=== PATIENT | female | born 1955 | race Caucasian/White ===

== ENCOUNTER 2017-02-06 20:37 | Inpatient (IN) | payer SELFPAY ==
--- NOTE | ~2017-02-06 | CN ---
Consultation Report [facility] [address] [place]. [address] NAME: HANNA CASAS : 55 STATUS : ADM IN PAT#: [id number] AGE: 61 ADM/REG DATE : 02/07/17 MR#: [id number] REPORT SERV DATE: 02/07/17 DICTATED BY: BEVERLY FATIMA DATE: 02/07/17 REPORT STATUS : Draft TRANSCRIBED BY: MODL DATE: 02/07/17 GI CONSULTATION DATE OF CONSULTATION: 02/07/2017 REASON FOR CONSULTATION: Evaluation and management of abdominal pain, nausea, vomiting, pancreatitis. HISTORY OF PRESENT ILLNESS: Ms. Casas is a 61-year-old female patient, who was admitted with a chief complaint of abdominal pain, nausea, vomiting, chest pain. She states that, she has been having symptoms since 11/20/2016 with nausea, vomiting, epigastric abdominal pain, loss of appetite. She states that, she has lost 60 pounds since first becoming sick in November. She states that, initially she was seen at [facility] Emergency Room. She had an ultrasound of her abdomen, which she reports as negative other than fatty liver disease. She had a nuclear stress test ordered by Dr. Benítez as an outpatient, which was essentially negative. She has had a recent upper GI series at [facility]. Through the direction of Dr. Benítez, showing what she states is esophagitis, gastritis, and duodenitis. She has been trialed on omeprazole as well as Carafate. She states that, typically after intake of any liquids or medications, she has immediate nausea with vomiting. She states that, she has been also having diarrhea, nonbloody. She complains of epigastric left upper quadrant abdominal pain with radiation into her back as well as chest discomfort. She had an elevated troponin on admission prompting elevated troponin/acute anterior xwu-VX-cibntrdt OK, being seen by Cardiology with tentative plans for cardiac cath, plus or minus PCI. Her CT scan on admission without contrast showed mild infiltration of the peripancreatic fat planes, distal pancreatic tail and body of uncertain clinical significance, the questionable mild acute pancreatitis as well as hepatic steatosis. Her lipase on admission was 534, total bilirubin is 0.9. Her ALT was 23. Her AST was 31. Her alkaline phosphatase was 260, a lactate of 1.4. Presently, she states that she is having left upper quadrant abdominal pain with some radiation into her back. She has been n.p.o. and states her symptoms are not quite as bad. She did also noted to have elevated white blood cell count on admission of 17,500 as well as hypokalemia with a potassium of 2.6. I have discussed with her, she will need at least an upper endoscopy, plus or minus endoscopic ultrasound, after cardiac workup and clearance has been done. I did discuss the risks, benefits, alternatives, and complications with her to include, but not limited to risk of bleeding, perforation, infection, reaction to medications as well as cardiac and pulmonary side effects. She gives consent to proceed if needed. She does voice concern as she states she has had a cousin, who has passed from pancreatic cancer. She states that also in the past, she has had an EGD as well as a colonoscopy in [address] Cohen in [place], I believe she said with her having duodenitis as well as colon polyps on that exam. PAST MEDICAL HISTORY: Positive for anxiety, depression, morbid obesity, obstructive sleep apnea, noncompliant with CPAP therapy, recent weight loss of 60 pounds since November. Consultation Report [address] [place]. [address] NAME: HANNA CASAS : 55 STATUS : ADM IN [facility]#: [id number] AGE: 61 ADM/REG DATE : 02/07/17 MR#: [id number] REPORT SERV DATE: 02/07/17 DICTATED BY: BEVELRY FATIMA DATE: 02/07/17 REPORT STATUS : Draft TRANSCRIBED BY: PIPE DATE: 02/07/17 PAST SURGICAL HISTORY: Cholecystectomy, hysterectomy, . FAMILY HISTORY: Cousin from pancreatic cancer, otherwise noncontributory from a GI standpoint. SOCIAL HISTORY: Positive tobacco. No alcohol. No illicits. Unemployed. ALLERGIES: LISTED TO CECLOR. HOME MEDICATIONS: Xanax, aspirin, Prozac, and [place]. REVIEW OF SYSTEMS: A 10-point review of systems has been obtained with pertinent positives being addressed in the history of present illness. PERTINENT LABORATORY DATA: Sodium 133, potassium 2.8, BUN is 11, creatinine is 1.73. White count 17.5, hemoglobin 15.2, hematocrit 42.7, platelet count 341. INR is 1.2. Triglycerides of 130. PHYSICAL EXAMINATION: VITAL SIGNS: Temperature is 96.8, pulse 88, respiration rate 16, blood pressure of 157/83. NEUROLOGIC: Reveals an alert, obese female, resting in bed. No obvious focal deficits. GENERAL: Cooperative, no apparent distress. Awake, alert, oriented x3. HEAD, EARS, EYES, NOSE, AND THROAT: Anicteric. Pupils equal, round, reactive to light accommodation. Normocephalic, atraumatic. NECK: No JVD. No palpable nodes. CARDIOVASCULAR SYSTEM: Regular rate and rhythm. ABDOMEN: Soft. Tender to palpation. Left quadrant without rebound or guarding. No organomegaly elicited on exam. Active bowel sounds in all four quadrants. Noted obese abdomen. EXTREMITIES: No edema. Normal distal pulses. SKIN: Warm, dry, and intact. ASSESSMENT AND PLAN: 1. Acute anterior evt-CO-iwiddftnq myocardial infarction. Plan for cardiac cath. 2. Pancreatitis with mildly elevated lipase. 3. Nausea, vomiting with abdominal pain. 4. Chest pain. 5. Hypokalemia. 6. Leukocytosis. 7. Acute kidney injury. 8. Obesity. 9. Recent upper GI series with esophagitis, gastritis, and duodenitis. PLAN: Consultation Report [address] [address] NAME: HANNA CASAS : 55 STATUS : ADM IN [facility]#: [id number] AGE: 61 ADM/REG DATE : 02/07/17 MR#: [id number] REPORT SERV DATE: 02/07/17 DICTATED BY: BEVERLY FATIMA DATE: 02/07/17 REPORT STATUS : Draft TRANSCRIBED BY: MODDeya DATE: 02/07/17 1. The patient is planned for cardiac cath, plus or minus PCI with Dr. Che at some point. 2. The patient will need EGD plus or minus EUS, after cardiac clearance is obtained. 3. IV fluid resuscitation as well as PPI. 4. Stool studies for diarrhea. 5. Add Pepcid. 6. Schedule Zofran. We will follow. KAM/PIPE [place]burn RICARDO Herrera / [id number] CC: Ricky Clancy M.D.
--- NOTE | ~2017-02-06 | HP ---
History And Physical [place] [address] [facility] [place]. [address] NAME: HANNA CASAS : 55 STATUS : ADM IN PAT#: [id number] AGE: 61 ADM/REG DATE : 02/07/17 MR#: [id number] REPORT SERV DATE: 02/07/17 DICTATED BY: MAHESH GAITAN DATE: 02/07/17 REPORT STATUS : Draft TRANSCRIBED BY: MODL DATE: 02/07/17 DATE OF ADMISSION: 02/07/2017 POINT OF ENTRY: [facility] Emergency Department. CHIEF COMPLAINT: Abdominal pain, nausea, vomiting, weight loss, and chest pain. HISTORY OF PRESENT ILLNESS: Ms. Casas is a 61-year-old female with a history of anxiety, depression, morbid obesity, as well as obstructive sleep apnea, noncompliant with CPAP therapy, who presents to the emergency room today with multiple complaints including abdominal pain, chest pain, nausea, vomiting, and weight loss. The patient states that for the past three months she has had issues with intractable nausea and vomiting with inability to tolerate any significant oral intake including solids, liquids, as well as medications. She states she has lost about 60 pounds since . She has seen Dr. Benítez multiple times for these complaints. At first, trialed on some oral PPI, which did not improve her symptoms as well as trial on some Carafate, which also did not improve her symptoms. The patient recently had an upper GI series, which reportedly showed duodenitis and gastritis. I am unable to see the details of this radiographic study performed through Dr. Benítez's office. The patient also reports that she has epigastric abdominal pain with radiation to the back between her shoulder blades as well as some left-sided chest pain, likely on either breasts. She reportedly was seen at [facility] for similar complaints earlier in November and then was referred for a nuclear stress test through our system which was low risk stress test in November of this year. The patient was seen by Dr. Benítze's office today and was referred to the emergency department for admission given worsening renal function as well as hypokalemia with a white count of 17,500. The patient denies any fevers or night sweats, but does report some chills. Denies any shortness of breath, cough, or sputum production, but again mentions the left-sided chest pain or either breasts as well as the epigastric abdominal pain with associated nausea, vomiting, with radiation to the back with inability to tolerate any significant oral intake with associated weight loss. The patient also reports some recent lower extremity tenderness and edema which has since resolved with elevation of her legs. Initial evaluation in the emergency department notable for labs and for dehydration with a creatinine of 1.75 as well as potassium 2.8. Her troponin level was initially elevated at 0.26, on repeat it is climbing at 0.44. EKGs appeared to be nonischemic. White count is 17,500, lactic acid within normal limits. Lipase is mildly elevated at 534. CT scan of the abdomen and pelvis was notable for some mild distal peripancreatic stranding concerning for possible pancreatitis. The patient was given IV fluids, antiemetics, and pain control, and was admitted to Hospitalist Service for further evaluation and management. History And Physical [address] [address] NAME: HANNA CASAS : 55 STATUS : ADM IN [facility]#: [id number] AGE: 61 ADM/REG DATE : 02/07/17 MR#: [id number] REPORT SERV DATE: 02/07/17 DICTATED BY: MAHESH GAITAN DATE: 02/07/17 REPORT STATUS : Draft TRANSCRIBED BY: PIPE DATE: 02/07/17 COMPREHENSIVE REVIEW OF SYSTEMS: Otherwise negative unless listed in history of present illness. PREVIOUS MEDICAL HISTORY: 1. Anxiety. 2. Depression. 3. Morbid obesity. 4. Obstructive sleep apnea, noncompliant with CPAP therapy. SURGICAL HISTORY: 1. Cholecystectomy. 2. Abdominal hysterectomy. 3. . ALLERGIES: CECLOR. HOME MEDICATIONS: 1. Xanax 1 mg t.i.d. p.r.n. 2. Aspirin 81 mg daily p.r.n. 3. Prozac 40 mg at bedtime. 4. [place] 10/325 one tab q.i.d. p.r.n. SOCIAL HISTORY: She does smoke. Down from a pack and half a day to one pack per week during this recent illness. Denies any alcohol, denies any illicits. She is currently applying for disability. FAMILY MEDICAL HISTORY: Mother with aortic aneurysm as well as history of stroke. Father with history of congestive heart failure and coronary artery disease. Siblings with valvular disease and heart murmur. LABS AND IMAGIN. White count 17.5, hemoglobin 15.2, hematocrit 42.7, and platelet count is 341. INR 1.2. 2. Sodium is 133, potassium 2.8, chloride 90, carbon dioxide 30, BUN 11, creatinine 1.75, glucose is 106, calcium is 8.3, magnesium 1.8, protein 7.3, albumin is 2.5, bilirubin is 1.1, ALT is 24, AST 30, alkaline phosphatase is 241. 3. Lipase is 534. 4. Troponin is 0.26, on recheck is now 0.44. 5. Lactic acid is 1.4. 6. Chest x-ray per my review shows no acute cardiopulmonary abnormality. 7. EKG per my review shows normal sinus rhythm with no evidence of any acute ischemia or infarction. 8. CT scan of the abdomen and pelvis shows some mild distal peripancreatic stranding concerning for possible pancreatitis as well as hepatic steatosis and diverticulosis without evidence of diverticulitis. 9. Review of [employer] does reveal a stress test of 11/2016 that was low risk vasodilators stress. History And Physical [address] [address] NAME: HANNA CASAS : 55 STATUS : ADM IN [facility]#: [id number] AGE: 61 ADM/REG DATE : 02/07/17 MR#: [id number] REPORT SERV DATE: 02/07/17 DICTATED BY: MAHESH GAITAN DATE: 02/07/17 REPORT STATUS : Draft TRANSCRIBED BY: PIPE DATE: 02/07/17 PHYSICAL EXAMINATION: VITAL SIGNS: Temperature is 97.8 degrees Fahrenheit, pulse is 103, respirations 18, saturating 97% on room air, blood pressure is 166/104. On recheck, it is now 163/87, pulse of 86. GENERAL: The patient is awake, alert, and in no acute distress. Resting comfortably in bed. She is a morbidly obese appearing female. HEENT: Atraumatic and normocephalic. Moist mucous membranes. Pupils are equal, round, reactive to light and accommodation. Extraocular eye movements are intact. No scleral icterus. NECK: No jugular venous distention. No carotid bruits. CARDIAC: Regular rate and rhythm. No murmurs, rubs, or gallops. Normal S1, S2. LUNGS: Clear to auscultation bilaterally. Does have some decreased breath sounds in the bases. ABDOMEN: Obese, soft, does have some epigastric tenderness on palpation as well as hypoactive bowel sounds throughout. EXTREMITIES: Warm and well perfused with trace lower extremity edema, but they are tender to palpation, left greater than right. SKIN: Warm and dry. PSYCH: Affect appropriate. NEURO: Alert and oriented x3. Cranial nerves 2 through 12 grossly intact. Speech is normal. Gait not assessed. ASSESSMENT: Ms. Casas is a 61-year-old female, who presents to the emergency department today with multiple complaints that have largely existed for the past three months and found to have evidence of acute kidney injury and dehydration as well as hyponatremia, hypokalemia, leukocytosis, as well as elevated troponin value, and concern for possible pancreatitis. PROBLEM LIST: 1. Intractable nausea and vomiting. 2. Pancreatitis. 3. Acute kidney injury and dehydration. 4. Hypokalemia. 5. Leukocytosis. 6. Cjl-MV-mdfukgdty myocardial infarction. 7. Hyponatremia. 8. History of gastritis and duodenitis. PLAN: 1. Intractable nausea and vomiting. This is likely multifactorial in etiology from pancreatic inflammation that was seen on CT scan as well as upper GI series recently was performed that showed gastritis and duodenitis. We will treat supportively with antiemetics, pain control, and IV fluids. We will ask Gastroenterology to see patient in the morning for further evaluation and possible endoscopic evaluation. We will empirically place the patient on IV PPI b.i.d. given history of gastritis. 2. Pancreatitis, unclear if this is acute or chronic issue given the chronicity of the History And Physical [address] [address] NAME: HANNA CASAS : 55 STATUS : ADM IN [facility]#: [id number] AGE: 61 ADM/REG DATE : 02/07/17 MR#: [id number] REPORT SERV DATE: 02/07/17 DICTATED BY: MAHESH GAITAN DATE: 02/07/17 REPORT STATUS : Draft TRANSCRIBED BY: MODL DATE: 02/07/17 patient's symptoms. Regardless, we will treat nothing by mouth. With supportive care, with antiemetics, pain control, and IV fluids. Check a lipid panel as well as ionized calcium for alternative etiologies. CT scan of the abdomen and pelvis was unremarkable. She is status post cholecystectomy denies any alcohol intake. 3. Acute kidney injury and dehydration, likely from poor oral intake as well as GI losses. Provide aggressive IV fluid hydration. 4. Hypokalemia, providing IV repletion of potassium. 5. Leukocytosis, unclear etiology at this time. Chest x-ray is clear. This may be due to stress response from her nausea, vomiting, pancreatitis. Urinalysis is pending. Follow up blood cultures. Also checking a procalcitonin level. 6. Qyw-IG-gbxnpfhzi myocardial infarction. The patient does report some vague sensation of chest pain, which may be related to her gastritis and pancreatitis or may be completely different set of complaints. EKG is nonischemic. It is reassuring she had a recent stress test that was low risk less than two months ago. We will continue to trend out cardiac enzymes. Dr. Che of Cardiology was consulted and will see patient in the morning. Elevated troponin values also may be due to the patient's dehydration. 7. DVT prophylaxis. Heparin subcu. CODE STATUS: The patient wished to be full code. JCB/MODL Mahesh Gaitan MD / [id number] CC: MD Yonatan Joy M.D.
--- NOTE | ~2017-02-06 | CN ---
Consultation Report [facility] [address] [place]. [address] NAME: HANNA CASAS : 55 STATUS : ADM IN [facility]#: [id number] AGE: 61 ADM/REG DATE : 02/07/17 MR#: [id number] REPORT SERV DATE: 02/09/17 DICTATED BY: DATE: REPORT STATUS : Draft TRANSCRIBED BY: MODL DATE: 02/09/17 CONSULTATION DATE OF CONSULTATION: REASON FOR CONSULTATION: Acute kidney injury. HISTORY OF PRESENT ILLNESS: Ms. Casas is a 61-year-old white female, who presented to the hospital with chief complaint of 60-pound weight loss, nausea and vomiting over three months with diarrhea. She presented to the hospital, had a mild troponin elevation and was taken to cath, which showed no significant obstructive disease. She got fluid yesterday with cath and then Bumex afterwards. Creatinine was 1.8 on admission; today, it is 1.8; in December, it was 1.1 and last year on the records, it was normal. She denies any history of kidney disease in the past. She is not diabetic. She denies history of hypertension prior to this admission. Her complaints have been GI only. Denies any dysuria or hematuria. Denies any NSAID usage. PAST MEDICAL HISTORY: Anxiety, depression, duodenal ulcer, fatty liver, obstructive sleep apnea, morbid obesity, gout, osteoarthritis, reflux. She has had a hysterectomy, a gastrectomy, and . ALLERGIES: CECLOR. SOCIAL HISTORY: She is . States she smokes a pack of cigarettes a week. No alcohol use. FAMILY MEDICAL HISTORY: Denies any kidney disease in her family at all. HOME MEDICATIONS: Xanax, Prozac, [place], and aspirin. REVIEW OF SYSTEMS: Twelve-point review of systems obtained and negative with the exception of that in the HPI. PHYSICAL EXAMINATION: VITAL SIGNS: Temperature 97.8, blood pressure 177/85, pulse 78, respiratory rate 18, O2 saturation is 95%. GENERAL: This is a pleasant, cooperative, overweight white female. She is sitting up on the side of bed, in no acute distress. Answers questions appropriately. HEENT: Normocephalic and atraumatic. Conjunctivae clear. Sclerae anicteric. Pupils are equal and round. Oral mucosa is moist. NECK: Thick. LUNGS: Respirations even and unlabored. Breath sounds clear to auscultation. HEART: Rate is regular. No murmur, rub, or gallop. ABDOMEN: Soft and nontender. No CVA tenderness. Consultation Report [place] [address] [place]. [address] NAME: HANNA CASAS : 55 STATUS : ADM IN PAT#: [id number] AGE: 61 ADM/REG DATE : 02/07/17 MR#: [id number] REPORT SERV DATE: 02/09/17 DICTATED BY: DATE: REPORT STATUS : Draft TRANSCRIBED BY: MODL DATE: 02/09/17 BACK: Within normal limits. EXTREMITIES. No significant edema. No cyanosis or clubbing. SKIN: Warm, dry, and intact. No unusual rashes or skin lesions. NEURO: No focal deficits. Mood and affect, pleasant appropriate. PERTINENT LABORATORIES AND X-RAYS: Sodium 142, potassium 3.5, chloride 107, CO2 of 27, BUN of 15, creatinine of 1.8, calcium 7.8, magnesium 1.8, albumin of 2.1. LFTs unremarkable. WBCs 9, H and H 12 and 37, platelets 299,000. IMPRESSION: 1. Acute kidney injury. 2. Nausea and vomiting with 60-pound weight loss. 3. Grx-GR-xxcxyylst myocardial infarction with negative cath yesterday, postop day one. 4. Acute pancreatitis. 5. Hypertension. PLAN/RECOMMENDATIONS: Acute kidney injury with weight loss and GI symptoms ongoing for months. Creatinine 1.8 on admission and today, it is still 1.8 status post cath. She has good urine output. We will give her IV fluids. Recheck urine studies and SPEP. Suspect this is all due to her chronic dehydration, but certainly there is nothing acute here and if she is stable, would be okay for discharge and follow up as an outpatient if GI is agreeable after getting her EGD. We will follow along with you. Thank you for the consultation. HILDA RICARDO Hull / [id number] CC: Ricky Clancy Jackelin, M.D.
--- NOTE | ~2017-02-06 | DS ---
Discharge Summary [place] [id number] [place]. [address] NAME: HANNA CASAS : 55 STATUS : DIS IN PAT#: [id number] AGE: 61 ADM/REG DATE : 02/07/17 MR#: [id number] REPORT SERV DATE: 02/14/17 DICTATED BY: TITUS ORONA DATE: 02/13/17 REPORT STATUS : Draft TRANSCRIBED BY: MODL DATE: 02/13/17 ADMISSION DATE: 02/07/2017 DISCHARGE DATE: 02/13/2017 DISCHARGE DIAGNOSES: 1. Acute pancreatitis, increased CA-19-9. 2. Chest pain status post catheterization performed by Dr. Che on 02/08/2017, normal coronaries. 3. Nausea, vomiting, and diarrhea. 4. Acute on chronic kidney disease. 5. Fatty liver. 6. Obesity. 7. Anxiety disorder. DISCHARGE CONSULTANTS: 1. Reginaldo Che M.D., [facility], Cardiology. 2. Gray Al M.D. 3. Danielito Bhatt M.D. FOLLOW-UP: Followups with Dr. Che, Dr. Al, and Dr. Bhatt post discharge, and Dr. Benítez. We will need followup for BMP for potassium, creatinine, and follow up for results for SPEP, UPEP. PROCEDURES DONE: 1. Cardiac cath with no coronary artery disease identified on 02/08/[address] Che. 2. 2D echo with LVEF 55% to 60%. 3. CT abdomen and pelvis performed on 02/06/2017, mild infiltration. Pancreatic fat planes. Distal pancreatic body and tail. Mild acute pancreatitis as well as nonspecific hepatic steatosis, mild diverticulosis, and no diverticulitis. DISCHARGE DISPOSITION: Home with bland renal diet. DISCHARGE MEDICATIONS: 1. Aspirin 81 mg one tablet p.o. daily. 2. Atorvastatin 40 mg one tablet p.o. q.h.s. 3. Prozac 40 mg one tablet p.o. q.h.s. 4. Metoprolol 25 mg one tablet p.o. q.12 hours. 5. Protonix 40 mg one tablet p.o. daily. 6. Okay for formulary substitution. 7. Home Xanax 1 mg p.o. t.i.d. as needed for anxiety. 8. [place] 10/325 mg one tablet p.o. q.i.d. as needed for breakthrough pain. 9. KCl 10 mEq one tablet p.o. daily. HOSPITAL COURSE: Please see interim summary for interim course up to 02/12/2017, care resumed by this public relations writer on 02/13/2017. Briefly, this is a very pleasant 61-year-old female with history of depression, anxiety, obesity, sleep apnea noncompliant with Discharge Summary [address] [address] NAME: HANNA CASAS : 55 STATUS : DIS IN PAT#: [id number] AGE: 61 ADM/REG DATE : 02/07/17 MR#: [id number] REPORT SERV DATE: 02/14/17 DICTATED BY: TITUS ORONA DATE: 02/13/17 REPORT STATUS : Draft TRANSCRIBED BY: PIPE DATE: 02/13/17 CPAP, who comes in for having unfortunately multiple weeks to months of nausea, vomiting, and inability to tolerate significant amount of foods with subsequent weight loss since . Has been tried on a supportive PPI and Carafate without improvement. Had upper GI series with duodenitis and gastritis. The patient was also noted upon admission to have intractable nausea and vomiting, with abnormal troponins, initially suspecting NSTEMI with DARLENE secondary to dehydration. The patient was evaluated by Dr. Che and cardiac cath was performed. Due to risk factors of coronary disease, obesity, hyperlipidemia, and tobacco use, the patient was attempted to be medically optimized for catheterization, evaluated also by Renal to monitor postprocedure and CKD history. The patient additionally was also evaluated by GI for pancreatitis. Workup was underway and EGD was performed noted for gastritis and duodenitis, and the patient was aggressively hydrated and treated for acute pancreatitis. The patient had symptomatic improvement, and was able to tolerate p.o. On day of evaluation on this stay the patient was tolerating p.o., and eager to go home. Had no difficulties with ADLs per the patient, will need close followup. Additionally, the patient will be followed by Dr. Sánchez for possible EUS, if indicated I will defer this to GI team and also follow with Dr. Al, Dr. Bhatt, Dr. Che, and Dr. Benítez. All questions answered with the patient at bedside. I spent 30 minutes spent on D/C planning, med reconciliation, education. Thank you Dr. Benítez for allowing us in the care of this wonderful patient. DDN/MODL Titus Orona MD / [id number] CC: MD Yonatan Rees M.D.
--- NOTE | ~2017-02-06 | CN ---
Consultation Report [facility] [address] [place]. [address] NAME: FAIZA CASAS : 55 STATUS : ADM IN PAT#: [id number] AGE: 61 ADM/REG DATE : 02/07/17 MR#: [id number] REPORT SERV DATE: 02/07/17 DICTATED BY: GIOVANY CHE III DATE: 02/07/17 REPORT STATUS : Draft TRANSCRIBED BY: MODDeya DATE: 02/07/17 CONSULTATION DATE OF CONSULTATION: 02/07/2017 HISTORY OF PRESENT ILLNESS: Ms Faiza Casas is a 61-year-old white female from [place], [place], referred for evaluation of an acute anterior non-ST segment elevation myocardial infarction. The patient had been in her usual state of health until 11/20/2016. At that time, the patient had the onset of dull left precordial chest pains radiating to her back. The patient's chest pains have lasted up to 5 minutes in duration. The patient's chest pains have been accompanied by dyspnea, diaphoresis, nausea, and vomiting on one occasion. The patient's chest pains have been precipitated by emotional upset. The patient denied relation to exertion, oral intake, respiration, and positional change. The patient denied relieving factors. The patient denied trying sublingual nitroglycerin, antacids or a heating pad. The patient has noted chest pain at rest. The patient denied being woken from sleep by chest pain. The patient has noted a progressive increase in the frequency, duration, and intensity of her chest pains. The patient was subsequently seen in the [facility] Emergency Room. The patient's troponin I level was 0.26, potassium 2.6, creatinine 1.76, white blood cell count was 17,700, pancreatic lipase was 534, and alkaline phosphatase was 241. A 12-lead electrocardiogram demonstrated sinus rhythm at a rate of 90 beats per minute and anterior ischemia. The patient was subsequently admitted and referred for cardiovascular evaluation. The patient complained of dyspnea on exertion at less than 50 yards, dependent bilateral pedal edema and two episodes of syncope. The patient denied orthopnea, paroxysmal nocturnal dyspnea, trepopnea, platypnea, sacral edema, and palpitations. The patient has no history of rheumatic fever or cardiac murmur. The patient's documented coronary artery disease risk factors include obesity, hyperlipoproteinemia, and tobacco use. PAST MEDICAL HISTORY: 1. Morbid obesity. 2. Hyperlipoproteinemia. 3. Anxiety. 4. Depression. 5. Obstructive sleep apnea, CPAP noncompliant. 6. Fatty liver. 7. Gastroesophageal reflux. 8. History of a duodenal ulcer. 9. Irritable bowel syndrome. 10.Lumbar degenerative disc disease. 11.Osteoarthritis. 12.Gout. 13.Left-sided sciatica. Consultation Report [address] [place]. [address] NAME: FAIZA CASAS : 55 STATUS : ADM IN PAT#: [id number] AGE: 61 ADM/REG DATE : 02/07/17 MR#: [id number] REPORT SERV DATE: 02/07/17 DICTATED BY: GIOVANY CHE III DATE: 02/07/17 REPORT STATUS : Draft TRANSCRIBED BY: PIPE DATE: 02/07/17 PROCEDURES: 1. Status post section. 2. Status post bilateral tubal ligation. 3. Status post total abdominal hysterectomy. 4. Status post cholecystectomy with an incidental appendectomy. 5. Status post OU cataract extractions with intra-ocular lens implants. ALLERGIES: CEFACLOR. MEDICATIONS: 1. Alprazolam 1 mg p.o. t.i.d. p.r.n. 2. Aspirin 81 mg p.o. daily p.r.n. 3. Fluoxetine 40 mg p.o. at bedtime. 4. Hydrocodone/acetaminophen 10/325 mg p.o. q.i.d., p.r.n. FAMILY HISTORY: Positive for myocardial infarction, diabetes mellitus, stroke, hypertension, rheumatoid arthritis, depression, and bipolar mental illness. Negative for cancer, seizures, kidney disease, liver disease, and anemia. SOCIAL HISTORY: The patient smokes approximately one pack of cigarettes each week. The patient has a history of social alcohol use. The patient generally drinks beer or wine. PHYSICAL EXAMINATION: GENERAL: Demonstrated an alert, morbidly obese, older white female, in no acute distress. VITAL SIGNS: Demonstrated a temperature of 98.2 orally, respiratory rate of 14 breaths per minute, and a blood pressure of 169/100 mmHg with a heart rate of 101 beats per minute. SKIN: Warm and dry. NECK: Supple and nontender. There was decreased range of motion. There was no appreciable lymphadenopathy or thyromegaly. There was no jugular venous distention at 90 degrees. There were no carotid bruits. BACK: Examination of the back demonstrated no spinal or costovertebral angle tenderness. CHEST: Examination of the chest demonstrated left basilar inspiratory crackles. There were no rhonchi, wheezes, or pleural rubs. There was symmetrical expansion of the chest. CARDIAC: Cardiac examination demonstrated a nonpalpable apical impulse. There was a regular rhythm and rate without murmur, rub, gallop, or mid systolic click. There were no thrills or heaves. There was no hepatojugular reflux. ABDOMEN: Examination of the abdomen demonstrated that it was obese, soft, and protuberant. There was no appreciable hepatosplenomegaly or masses. Bowel sounds were intact. There were no abdominal or femoral bruits. EXTREMITIES: Examination of the extremities demonstrated they were symmetrical. There was decreased range of motion. There was no cyanosis, clubbing, or edema. Pulses were 2+ and equal at the radial, femoral, dorsalis pedis, and posterior tibial arteries. ASSESSMENT: Ms Fazia Casas is a 61-year-old, white female with three other risk factors for coronary atherosclerotic disease (i.e. obesity, hyperlipoproteinemia, tobacco Consultation Report [address] [place]. [address] NAME: FAIZA CASAS : 55 STATUS : ADM IN [facility]#: [id number] AGE: 61 ADM/REG DATE : 02/07/17 MR#: [id number] REPORT SERV DATE: 02/07/17 DICTATED BY: GIOVANY CHE III DATE: 02/07/17 REPORT STATUS : Draft TRANSCRIBED BY: PIPE DATE: 02/07/17 use) and no prior cardiac history; who presents with an acute anterior non-ST segment elevation myocardial infarction-acute coronary syndrome, acute kidney injury, hypokalemia and acute pancreatitis. I am concerned about the use of systemic anticoagulation in the setting of acute pancreatitis. I will defer treatment with intravenous heparin/enoxaparin. I would recommend initiation of therapy with aspirin, metoprolol, 2% Nitrol paste and atorvastatin. I would recommend cardiac catheterization and consideration of percutaneous coronary intervention when acute kidney injury has resolved and okay from a Gastroenterology perspective. MAYRA/PIPE Giovany Che III, M.D., [facility] / [id number] CC: Ricky Clancy M.D.
--- NOTE | ~2017-02-06 | EGD ---
EGD REPORT [facility] [address] [place]. [address] NAME: FAIZA CASAS : 55 STATUS : ADM IN PAT#: [id number] AGE: 61 ADM/REG DATE : 02/07/17 MR#: [id number] REPORT SERV DATE: 02/10/17 DICTATED BY: YOLY DRISCOLL DATE: 02/10/17 REPORT STATUS : Draft [facility]ANSCRIBED BY: [facility] DATE: 02/10/17 Endoscopy Center Patient Name: Faiza Casas Date of : 1955 Attending MD: YOLY DRISCOLL MD Procedure Date No Time: 02/10/2017 Procedure: Upper GI endoscopy Indications: Pancreatitis, Nausea with vomiting Referring MD: LORE RILEY Medicines: See the Anesthesia note for documentation of the administered medications Complications: No immediate complications. Procedure: Pre-Anesthesia Assessment: - Prior to the procedure, a History and Physical was performed, and patient medications and allergies were reviewed. The patient's tolerance of previous anesthesia was also reviewed. The risks and benefits of the procedure and the sedation options and risks were discussed with the patient. All questions were answered, and informed consent was obtained. Prior Anticoagulants: The patient has taken no previous anticoagulant or antiplatelet agents. ASA Grade Assessment: IV - A patient with severe systemic disease that is a constant threat to life. After reviewing the risks and benefits, the patient was deemed in satisfactory condition to undergo the procedure. After obtaining informed consent, the endoscope was passed under direct vision. Throughout the procedure, the patient's blood pressure, pulse, and oxygen saturations were monitored continuously. The GIF [id number] was introduced through the mouth, and advanced to the second part of duodenum. The upper GI endoscopy was accomplished without difficulty. The patient tolerated the procedure well. Findings: Patchy moderately erythematous mucosa was found in the second part of the duodenum. Biopsies were taken with a cold forceps for histology. Moderate inflammation was found in the entire examined stomach. Moderate inflammation was found in the gastric antrum. Biopsies were taken with a cold forceps for histology. A small hiatus hernia was present. The examined esophagus was normal. Impression: - Erythematous duodenopathy. Biopsied. EGD REPORT [address] [address] NAME: FAIZA CASAS : 55 STATUS : ADM IN [facility]#: [id number] AGE: 61 ADM/REG DATE : 02/07/17 MR#: [id number] REPORT SERV DATE: 02/10/17 DICTATED BY: YOLY DRISCOLL DATE: 02/10/17 REPORT STATUS : Draft TRANSCRIBED BY: [employer] DATE: 02/10/17 - Gastritis. - Gastritis. Biopsied. - Hiatus hernia. - Normal esophagus. Recommendation: - [facility]. Procedure Code(s): --- Professional --- 60903, Esophagogastroduodenoscopy, flexible, transoral; with biopsy, single or multiple Diagnosis Code(s): --- Professional --- K31.89, Other diseases of stomach and duodenum K29.70, Gastritis, unspecified, without bleeding K44.9, Diaphragmatic hernia without obstruction or gangrene K85.9, Acute pancreatitis, unspecified R11.2, Nausea with vomiting, unspecified CPT copyright 2013 [employer]. All rights reserved. The codes documented in this report are preliminary and upon stonework tracer review may be revised to meet current compliance requirements. Yoly Driscoll MD YOLY DRISCOLL MD 02/10/2017 7:40 AM This report has been signed electronically. Number of Addenda: 0 Note Initiated On: 02/10/2017 7:17 AM Scope Withdrawal Time 0 hours 0 minutes 0 seconds
--- NOTE | ~2017-02-06 | IDS ---
Interim Discharge Summary [facility] [address] [place]. [address] NAME: FAIZA CASAS : 55 STATUS : ADM IN PAT#: [id number] AGE: 61 ADM/REG DATE : 02/07/17 MR#: [id number] REPORT SERV DATE: 02/12/17 DICTATED BY: JENNIFER ARORA DATE: 02/11/17 REPORT STATUS : Draft TRANSCRIBED BY: MODL DATE: 02/11/17 ADMISSION DATE: 02/07/2017 DISCHARGE DATE: DIAGNOSES: Interim discharge summary currently include: 1. Acute pancreatitis of unclear etiology, increased CA 19-9. 2. Chest pain with positive troponins falsely elevated and normal with negative cardiac catheterization that has been performed by Dr. Che on 02/08/2017, normal coronary. 3. Nausea, vomiting, and diarrhea resolved. 4. Acute on chronic kidney disease with probably a baseline creatinine around 1.5 to 1.7. 5. Urinary tract infection, urine culture, Enterococcus faecalis. 6. Fatty liver. 7. Obesity. 8. Anxiety disorder. CONSULTANTS ON THE CASE: 1. Dr. Reginaldo Che M.D., [facility], [facility], Cardiology. 2. Gray Al MD as well as Eran Driscoll M.D., GI. 3. Danielito Bhatt M.D., Nephrology. PROCEDURES DONE DURING THIS HOSPITALIZATION: Include a cardiac catheterization performed by Dr. Che on 02/08/2017 with normal coronary, no evidence of coronary artery disease. The patient also underwent 2D echo on 02/08/2017 showing normal left ventricular ejection fraction, some LVH, but ejection fraction around 55% to 60%. The patient also underwent a chest x-ray, portable, on 02/06/2017 showing normal heart size. Repeat chest x-ray on 02/10/2017 showed mild vascular congestion, but otherwise, normal. The patient's CT of the abdomen and pelvis performed on 02/06/2017 showed mild infiltration of the peripancreatic fat planes, distal pancreatic body and tail, mild acute pancreatitis as well as nonspecific hepatic steatosis pattern, mild diverticulosis, but no diverticulitis. This is a very pleasant 61-year-old female who has been admitted to Hospitalist Service on 02/12/2017 with abdominal pain, nausea, vomiting, weight loss, and chest pain. She is a patient who has a history of obesity, depression with anxiety, obstructive sleep apnea, noncompliant with CPAP who says that for a couple of months, she has intermittent and intractable nausea, vomiting, and inability to tolerate a significant amount of oral intake including solids and liquids. She lost she says about 60 pounds since . She has seen Dr. Prado multiple times. She has been tried on PPI Carafate, but no improvement significant. The patient recently had an upper GI series, which showed that had some duodenitis and gastritis. For further details, please see history and physical of Dr. Darinel King. The patient has been admitted to Hospitalist Service with intractable nausea and vomiting as well as abnormal troponins with suspected non-ST AR and acute kidney injury with dehydration. For further details, again see history and physical of Dr. Darinel King. The patient has been seen in consult, initially by Dr. Che from Cardiology Service, who due to the elevated troponin, scheduled the patient for cardiac catheterization since the patient did have some coronary artery disease risk factors such as obesity, hyperlipidemia, and tobacco abuse. There were concerns that might have a non-ST AR and as a result of that the Interim Discharge Summary [place] [id number] [facility] [place]. [address] NAME: FAIZA CASAS : 55 STATUS : ADM [facility]#: [id number] AGE: 61 ADM/REG DATE : 02/07/17 MR#: [id number] REPORT SERV DATE: 02/12/17 DICTATED BY: JENNIFER ARORA DATE: 02/11/17 REPORT STATUS : Draft TRANSCRIBED BY: MODDeya DATE: 02/11/17 patient has been hydrated, placed on Mucomyst and underwent cardiac catheterization, which results showed normal coronaries, no evidence of any significant coronary artery disease. Regarding her pancreatitis, she has been seen by Sharon, nurse practitioner, for GI Service. She recommended GI workup after cardiac clearance is obtained. After cardiac catheterization, the patient has been scheduled for an EGD, which has been performed by Dr. Driscoll on 02/10/2017. The EGD showed only gastritis and duodenitis. The patient has been started on a diet, and she advanced as tolerated with no complaints. However, the patient despite receiving vigorous IV hydration, her creatinine with baseline probably was around 1.7 to 1.5, started to increase slowly to a creatinine around 2 today. As a result, the patient has been seen by Dr. Bhatt in consult. Initially, she has been hydrated, but her IV fluids has been discontinued and he placed her on diuretics today. Due to the fact that her creatinine is still trending up, the patient has been continued to follow by Nephrology until her creatinine will stabilize, at which point, the patient can be discharged with followup appointment with Dr. Bhatt as an outpatient in a few weeks. Regarding her urinary tract infection, she grew Enterococcus faecalis, which is sensitive to Levaquin for which the patient is. Regarding her GI workup, Dr. Driscoll did not recommend any further inpatient workup, but followup as an outpatient with Dr. Sánchez for possible EUS if indicated. My partner is going to start seeing Ms. Faiza Casas. CF/MODL Jennifer Arora M.D. / [id number] CC: Ricky Clancy M.D.
[2017-02-06 17:46] LABS: BASOPHILS 0.1 %; BASOPHILS ABSOLUTE 0.01 10/3/uL (0.0-0.16); EOSINOPHILS 0.6 %; EOSINOPHILS ABSOLUTE 0.11 10/3/uL (0.0-0.53); HEMATOCRIT 44.6 % (36.0-48.0); HEMOGLOBIN 15.8 g/dL (12.0-16.0); IMMATURE GRANULOCYTES 0.3 %; IMMATURE GRANULOCYTES ABSOLUTE 0.05 10/3/uL (0.0-0.11); LYMPHOCYTES 11.8 %; LYMPHOCYTES ABSOLUTE 2.09 10/3/uL (0.67-4.30); MANUAL DIFF NO %; MEAN CORPUS HGB CONC 35.4 g/dL (32.0-36.0); MEAN CORPUSCULAR HEMOGLOB 30.4 pg (26.0-34.0); MEAN CORPUSCULAR VOLUME 85.9 fL (80-100); MEAN PLATELET VOLUME 8.5 fL (9.2-13.0); MONOCYTES 6.4 %; MONOCYTES ABSOLUTE 1.14 10/3/uL (0.21-1.20); NEUTROPHILS 80.8 %; NEUTROPHILS ABSOLUTE 14.28 10/3/uL (2.02-8.40); PLATELET COUNT 367 10/3/uL (150-400); RBC DISTRIBUTION WIDTH 13.2 % (12.0-16.0); RED CELL COUNT 5.19 10/6/uL (4.0-5.6); WHITE BLOOD CELLS 17.7 10/3/uL (4.5-10.5)
[2017-02-06 17:57] LABS: INTERNATIONAL NORMAL RATI 1.2 UNITS (-); PARTIAL THROMBO TIME 26.9 SEC (22.5-37.2); PROTIME (NOT ORD) 14.9 SEC (12.0-14.5)
[2017-02-06 18:01] LABS: BUN (BLOOD UREA NITROGEN) 11 MG/DL (6-23); CALCIUM, SERUM 8.5 MG/DL (8.5-10.4); CHLORIDE, SERUM 91 MMOL/L (96-112); CO2 (CARBON DIOXIDE) 30 MMOL/L (24-34); SODIUM, SERUM 133 MMOL/L (135-148)
[2017-02-06 18:03] LABS: CHEST PAIN PROFILE TAT 0 Hrs 21 Mins; CREATININE 1.76 MG/DL (0.55-1.02); GFR AFRICAN AMERICAN 36 ML/MIN (>=60); GFR NON AFRICAN AMERICAN 31 ML/MIN (>=60); GLUCOSE, SERUM 125 MG/DL (60-99); POTASSIUM, SERUM 2.6 MMOL/L (3.5-5.3); TROPONIN I 0.26 NG/ML (<0.05)
[2017-02-06] MEDS ORDERED: PROZAC40 MG PO (20:54)
[2017-02-06] MEDS ORDERED: XANAX1 MG PO (20:54)
[2017-02-06] MEDS ORDERED: NORCO1 TAB PO (20:55)
[2017-02-06] MEDS ORDERED: ASAB PO (20:59)
[2017-02-06 21:32] LABS: BASOPHILS 0.2 %; BASOPHILS ABSOLUTE 0.03 10/3/uL (0.0-0.16); EOSINOPHILS 0.7 %; EOSINOPHILS ABSOLUTE 0.13 10/3/uL (0.0-0.53); HEMATOCRIT 42.7 % (36.0-48.0); HEMOGLOBIN 15.2 g/dL (12.0-16.0); IMMATURE GRANULOCYTES 0.4 %; IMMATURE GRANULOCYTES ABSOLUTE 0.07 10/3/uL (0.0-0.11); LYMPHOCYTES 11.7 %; LYMPHOCYTES ABSOLUTE 2.06 10/3/uL (0.67-4.30); MANUAL DIFF NO %; MEAN CORPUS HGB CONC 35.6 g/dL (32.0-36.0); MEAN CORPUSCULAR HEMOGLOB 30.7 pg (26.0-34.0); MEAN CORPUSCULAR VOLUME 86.3 fL (80-100); MEAN PLATELET VOLUME 8.4 fL (9.2-13.0); MONOCYTES 6.3 %; MONOCYTES ABSOLUTE 1.11 10/3/uL (0.21-1.20); NEUTROPHILS 80.7 %; NEUTROPHILS ABSOLUTE 14.14 10/3/uL (2.02-8.40); PLATELET COUNT 341 10/3/uL (150-400); RBC DISTRIBUTION WIDTH 13.5 % (12.0-16.0); RED CELL COUNT 4.95 10/6/uL (4.0-5.6); WHITE BLOOD CELLS 17.5 10/3/uL (4.5-10.5)
[2017-02-06 21:48] LABS: A/G RATIO 0.5 (0.7-1.9); ALBUMIN 2.5 G/DL (3.5-5.0); BUN (BLOOD UREA NITROGEN) 11 MG/DL (6-23); CALCIUM, SERUM 8.3 MG/DL (8.5-10.4); CHLORIDE, SERUM 90 MMOL/L (96-112); CO2 (CARBON DIOXIDE) 30 MMOL/L (24-34); CREATININE 1.73 MG/DL (0.55-1.02); GFR AFRICAN AMERICAN 36 ML/MIN (>=60); GFR NON AFRICAN AMERICAN 31 ML/MIN (>=60); GLOBULIN 4.8 G/DL (2.5-4.1); GLUCOSE, SERUM 106 MG/DL (60-99); SGOT(AST) 30 U/L (5-40); SGPT(ALT) 24 U/L (5-65); SODIUM, SERUM 133 MMOL/L (135-148); TOTAL BILIRUBIN 1.1 MG/DL (0-1.2); TOTAL PROTEIN 7.3 G/DL (6.0-8.5)
[2017-02-06 21:50] LABS: ALKALINE PHOSPHATASE 241 U/L (45-117); POTASSIUM, SERUM 2.8 MMOL/L (3.5-5.3)
[2017-02-06 22:09] LABS: LACTATE 1.4 MMOL/L (0.3-2.4)
[2017-02-06 22:11] LABS: INTERNATIONAL NORMAL RATI 1.2 UNITS (-); PARTIAL THROMBO TIME 26.9 SEC (22.5-37.2); PROTIME (NOT ORD) 14.9 SEC (12.0-14.5)
[2017-02-06 22:46] LABS: PROCALCITONIN 0.37 ng/mL (<0.5)
[2017-02-07 05:37] LABS: CALCIUM IONIZED 4.26 MG/DL (3.80-4.80)
[2017-02-07 06:01] LABS: CHOL/HDL RATIO(NOT ORDER) 3.7 (0-5); CHOLESTEROL 119 MG/DL (< 200); CPK 53 U/L (0-200); FREE T4 1.86 NG/DL (0.76-1.46); HDL CHOLESTEROL 32 MG/DL (> 49); LDL CHOLESTEROL 61 MG/DL (< 130); NON-HDL CHOLESTEROL 87 MG/DL (< 160); TRIGLYCERIDE 130 MG/DL (< 150)
[2017-02-07 06:02] LABS: CK-MB 4.4 NG/ML; TROPONIN I 0.78 NG/ML (<0.05)
[2017-02-07 06:29] LABS: PROCALCITONIN 0.33 ng/mL (<0.5)
[2017-02-07 08:21] LABS: ASCORBIC ACID (UR NOT ORDER) NEG (NEG); BILIRUBIN, URINE NEGATIVE (NEG); KETONE, URINE NEGATIVE (NEG); LEUKOCYTE ESTERASE(NOT OR MOD (NEG); WBC (NOT ORDERED) (RFLEX) 4 (0-5)
[2017-02-07 10:10] LABS: GLYCOHEMOGLOBIN (HbA1c) 5.5 % (4.7-6.1)
[2017-02-07 11:58] LABS: CK-MB 4.7 NG/ML; CPK 52 U/L (0-200)
[2017-02-07 11:59] LABS: TROPONIN I 1.07 NG/ML (<0.05)
[2017-02-07 16:36] LABS: BASOPHILS 0.2 %; BASOPHILS ABSOLUTE 0.02 10/3/uL (0.0-0.16); EOSINOPHILS 1.9 %; EOSINOPHILS ABSOLUTE 0.25 10/3/uL (0.0-0.53); HEMATOCRIT 39.2 % (36.0-48.0); HEMOGLOBIN 13.3 g/dL (12.0-16.0); IMMATURE GRANULOCYTES 0.2 %; IMMATURE GRANULOCYTES ABSOLUTE 0.03 10/3/uL (0.0-0.11); LYMPHOCYTES 12.9 %; LYMPHOCYTES ABSOLUTE 1.68 10/3/uL (0.67-4.30); MEAN CORPUS HGB CONC 33.9 g/dL (32.0-36.0); MEAN CORPUSCULAR HEMOGLOB 30.4 pg (26.0-34.0); MEAN PLATELET VOLUME 8.5 fL (9.2-13.0); MONOCYTES 6.8 %; MONOCYTES ABSOLUTE 0.88 10/3/uL (0.21-1.20); NEUTROPHILS ABSOLUTE 10.14 10/3/uL (2.02-8.40); PLATELET COUNT 315 10/3/uL (150-400); RBC DISTRIBUTION WIDTH 13.6 % (12.0-16.0); RED CELL COUNT 4.38 10/6/uL (4.0-5.6)
[2017-02-07 16:37] LABS: MANUAL DIFF NO %; MEAN CORPUSCULAR VOLUME 89.5 fL (80-100)
[2017-02-07 16:53] LABS: A/G RATIO 0.6 (0.7-1.9); ALBUMIN 2.3 G/DL (3.5-5.0); BUN (BLOOD UREA NITROGEN) 12 MG/DL (6-23); CA-19-9 96.8 U/ML (< 37.0); CALCIUM, SERUM 8.1 MG/DL (8.5-10.4); CHLORIDE, SERUM 98 MMOL/L (96-112); CO2 (CARBON DIOXIDE) 31 MMOL/L (24-34); GFR AFRICAN AMERICAN 37 ML/MIN (>=60); GFR NON AFRICAN AMERICAN 32 ML/MIN (>=60); GLOBULIN 4.1 G/DL (2.5-4.1); GLUCOSE, SERUM 91 MG/DL (60-99); SGOT(AST) 33 U/L (5-40); SGPT(ALT) 20 U/L (5-65); SODIUM, SERUM 138 MMOL/L (135-148); TOTAL BILIRUBIN 0.9 MG/DL (0-1.2); TOTAL PROTEIN 6.4 G/DL (6.0-8.5)
[2017-02-07 16:54] LABS: ALKALINE PHOSPHATASE 219 U/L (45-117)
[2017-02-08 04:43] LABS: BASOPHILS 0.2 %; BASOPHILS ABSOLUTE 0.02 10/3/uL (0.0-0.16); EOSINOPHILS 2.4 %; EOSINOPHILS ABSOLUTE 0.27 10/3/uL (0.0-0.53); HEMATOCRIT 37.5 % (36.0-48.0); HEMOGLOBIN 12.5 g/dL (12.0-16.0); IMMATURE GRANULOCYTES 0.4 %; IMMATURE GRANULOCYTES ABSOLUTE 0.04 10/3/uL (0.0-0.11); LYMPHOCYTES 14.5 %; MEAN CORPUS HGB CONC 33.3 g/dL (32.0-36.0); MEAN CORPUSCULAR HEMOGLOB 30.3 pg (26.0-34.0); MEAN CORPUSCULAR VOLUME 90.8 fL (80-100); MEAN PLATELET VOLUME 8.3 fL (9.2-13.0); MONOCYTES 6.6 %; MONOCYTES ABSOLUTE 0.73 10/3/uL (0.21-1.20); NEUTROPHILS 75.9 %; NEUTROPHILS ABSOLUTE 8.37 10/3/uL (2.02-8.40); PLATELET COUNT 275 10/3/uL (150-400); RED CELL COUNT 4.13 10/6/uL (4.0-5.6)
[2017-02-08 04:46] LABS: MANUAL DIFF NO %
[2017-02-08 05:02] LABS: A/G RATIO 0.5 (0.7-1.9); BUN (BLOOD UREA NITROGEN) 13 MG/DL (6-23); CALCIUM, SERUM 7.8 MG/DL (8.5-10.4); CHLORIDE, SERUM 102 MMOL/L (96-112); CHOLESTEROL 108 MG/DL (< 200); CO2 (CARBON DIOXIDE) 27 MMOL/L (24-34); CREATININE 1.58 MG/DL (0.55-1.02); GFR AFRICAN AMERICAN 41 ML/MIN (>=60); GFR NON AFRICAN AMERICAN 35 ML/MIN (>=60); GLUCOSE, SERUM 84 MG/DL (60-99); HDL CHOLESTEROL 27 MG/DL (> 49); LDL CHOLESTEROL 51 MG/DL (< 130); NON-HDL CHOLESTEROL 81 MG/DL (< 160); POTASSIUM, SERUM 3.4 MMOL/L (3.5-5.3); SGOT(AST) 30 U/L (5-40); SGPT(ALT) 21 U/L (5-65); SODIUM, SERUM 137 MMOL/L (135-148); TOTAL BILIRUBIN 0.7 MG/DL (0-1.2); TRIGLYCERIDE 150 MG/DL (< 150)
[2017-02-08 05:04] LABS: ALKALINE PHOSPHATASE 199 U/L (45-117)
[2017-02-09 04:29] LABS: BASOPHILS 0.2 %; BASOPHILS ABSOLUTE 0.02 10/3/uL (0.0-0.16); EOSINOPHILS 2.8 %; EOSINOPHILS ABSOLUTE 0.25 10/3/uL (0.0-0.53); HEMATOCRIT 37.9 % (36.0-48.0); HEMOGLOBIN 12.5 g/dL (12.0-16.0); IMMATURE GRANULOCYTES 0.3 %; IMMATURE GRANULOCYTES ABSOLUTE 0.03 10/3/uL (0.0-0.11); LYMPHOCYTES 15.5 %; MEAN CORPUSCULAR HEMOGLOB 29.9 pg (26.0-34.0); MEAN CORPUSCULAR VOLUME 90.7 fL (80-100); MEAN PLATELET VOLUME 8.5 fL (9.2-13.0); MONOCYTES 5.2 %; MONOCYTES ABSOLUTE 0.47 10/3/uL (0.21-1.20); NEUTROPHILS ABSOLUTE 6.85 10/3/uL (2.02-8.40); PLATELET COUNT 289 10/3/uL (150-400); RBC DISTRIBUTION WIDTH 14.2 % (12.0-16.0); RED CELL COUNT 4.18 10/6/uL (4.0-5.6)
[2017-02-09 04:42] LABS: A/G RATIO 0.5 (0.7-1.9); ALBUMIN 2.1 G/DL (3.5-5.0); ALKALINE PHOSPHATASE 206 U/L (45-117); BUN (BLOOD UREA NITROGEN) 15 MG/DL (6-23); CALCIUM, SERUM 7.8 MG/DL (8.5-10.4); CHLORIDE, SERUM 107 MMOL/L (96-112); CO2 (CARBON DIOXIDE) 27 MMOL/L (24-34); CREATININE 1.82 MG/DL (0.55-1.02); GFR AFRICAN AMERICAN 34 ML/MIN (>=60); GFR NON AFRICAN AMERICAN 29 ML/MIN (>=60); GLOBULIN 3.9 G/DL (2.5-4.1); GLUCOSE, SERUM 88 MG/DL (60-99); POTASSIUM, SERUM 3.4 MMOL/L (3.5-5.3); SGOT(AST) 28 U/L (5-40); SGPT(ALT) 19 U/L (5-65); SODIUM, SERUM 142 MMOL/L (135-148); TOTAL BILIRUBIN 0.6 MG/DL (0-1.2)
[2017-02-09 04:45] LABS: MANUAL DIFF NO %
[2017-02-09 14:36] LABS: T PROTEIN (ELECT)(NOT OR 6.2 G/DL (6.0-8.5)
[2017-02-09 20:30] LABS: IMMUNOGLOBULIN G SUBCLASS 1 1030 mg/dL (405-1011); IMMUNOGLOBULIN G SUBCLASS 2 198 mg/dL (169-786); IMMUNOGLOBULIN G SUBCLASS 3 63 mg/dL (11-85); IMMUNOGLOBULIN G SUBCLASS 4 24 mg/dL (3-201)
[2017-02-09 20:59] LABS: ASCORBIC ACID (UR NOT ORDER) NEG (NEG); BILIRUBIN, URINE NEGATIVE (NEG); KETONE, URINE NEGATIVE (NEG); LEUKOCYTE ESTERASE(NOT OR SMALL (NEG); WBC (NOT ORDERED) (RFLEX) 5 (0-5)
[2017-02-10 06:17] LABS: BASOPHILS 0.2 %; BASOPHILS ABSOLUTE 0.02 10/3/uL (0.0-0.16); EOSINOPHILS 2.2 %; EOSINOPHILS ABSOLUTE 0.23 10/3/uL (0.0-0.53); HEMATOCRIT 37.9 % (36.0-48.0); HEMOGLOBIN 12.4 g/dL (12.0-16.0); IMMATURE GRANULOCYTES 0.5 %; IMMATURE GRANULOCYTES ABSOLUTE 0.05 10/3/uL (0.0-0.11); LYMPHOCYTES 14.4 %; LYMPHOCYTES ABSOLUTE 1.54 10/3/uL (0.67-4.30); MEAN CORPUS HGB CONC 32.7 g/dL (32.0-36.0); MEAN CORPUSCULAR VOLUME 91.8 fL (80-100); MEAN PLATELET VOLUME 8.3 fL (9.2-13.0); MONOCYTES 6.9 %; MONOCYTES ABSOLUTE 0.74 10/3/uL (0.21-1.20); NEUTROPHILS 75.8 %; PLATELET COUNT 281 10/3/uL (150-400); RBC DISTRIBUTION WIDTH 14.1 % (12.0-16.0); RED CELL COUNT 4.13 10/6/uL (4.0-5.6); WHITE BLOOD CELLS 10.7 10/3/uL (4.5-10.5)
[2017-02-10 06:19] LABS: INTERNATIONAL NORMAL RATI 1.3 UNITS (-); PROTIME (NOT ORD) 15.6 SEC (12.0-14.5)
[2017-02-10 06:27] LABS: ALBUMIN 2.2 G/DL (3.5-5.0); BUN (BLOOD UREA NITROGEN) 14 MG/DL (6-23); CALCIUM, SERUM 7.8 MG/DL (8.5-10.4); CHLORIDE, SERUM 107 MMOL/L (96-112); CO2 (CARBON DIOXIDE) 25 MMOL/L (24-34); CREATININE 2.07 MG/DL (0.55-1.02); GFR AFRICAN AMERICAN 29 ML/MIN (>=60); GFR NON AFRICAN AMERICAN 25 ML/MIN (>=60); PHOSPHORUS, SERUM 2.6 MG/DL (2.5-4.5); POTASSIUM, SERUM 3.6 MMOL/L (3.5-5.3); SODIUM, SERUM 142 MMOL/L (135-148)
[2017-02-10 06:29] LABS: GLUCOSE, SERUM 113 MG/DL (60-99)
[2017-02-10 06:47] LABS: MANUAL DIFF NO %
[2017-02-11 06:00] LABS: BASOPHILS 0.1 %; BASOPHILS ABSOLUTE 0.01 10/3/uL (0.0-0.16); EOSINOPHILS 2.6 %; EOSINOPHILS ABSOLUTE 0.27 10/3/uL (0.0-0.53); HEMATOCRIT 37.8 % (36.0-48.0); HEMOGLOBIN 12.8 g/dL (12.0-16.0); IMMATURE GRANULOCYTES 0.3 %; IMMATURE GRANULOCYTES ABSOLUTE 0.03 10/3/uL (0.0-0.11); LYMPHOCYTES 17.6 %; LYMPHOCYTES ABSOLUTE 1.84 10/3/uL (0.67-4.30); MEAN CORPUS HGB CONC 33.9 g/dL (32.0-36.0); MEAN PLATELET VOLUME 8.5 fL (9.2-13.0); MONOCYTES 6.6 %; MONOCYTES ABSOLUTE 0.69 10/3/uL (0.21-1.20); NEUTROPHILS 72.8 %; NEUTROPHILS ABSOLUTE 7.64 10/3/uL (2.02-8.40); PLATELET COUNT 270 10/3/uL (150-400); RBC DISTRIBUTION WIDTH 14.5 % (12.0-16.0); RED CELL COUNT 4.26 10/6/uL (4.0-5.6); WHITE BLOOD CELLS 10.5 10/3/uL (4.5-10.5)
[2017-02-11 06:01] LABS: MEAN CORPUSCULAR VOLUME 88.7 fL (80-100)
[2017-02-11 06:02] LABS: MANUAL DIFF NO %
[2017-02-11 06:15] LABS: BUN (BLOOD UREA NITROGEN) 13 MG/DL (6-23); CALCIUM, SERUM 7.9 MG/DL (8.5-10.4); CHLORIDE, SERUM 106 MMOL/L (96-112); CO2 (CARBON DIOXIDE) 26 MMOL/L (24-34); CREATININE 2.12 MG/DL (0.55-1.02); GFR AFRICAN AMERICAN 28 ML/MIN (>=60); GFR NON AFRICAN AMERICAN 24 ML/MIN (>=60); GLUCOSE, SERUM 109 MG/DL (60-99); POTASSIUM, SERUM 3.5 MMOL/L (3.5-5.3); SODIUM, SERUM 140 MMOL/L (135-148)
[2017-02-12 05:23] LABS: BASOPHILS 0.2 %; BASOPHILS ABSOLUTE 0.02 10/3/uL (0.0-0.16); EOSINOPHILS 2.9 %; EOSINOPHILS ABSOLUTE 0.26 10/3/uL (0.0-0.53); HEMATOCRIT 40.5 % (36.0-48.0); HEMOGLOBIN 13.3 g/dL (12.0-16.0); IMMATURE GRANULOCYTES 0.4 %; IMMATURE GRANULOCYTES ABSOLUTE 0.04 10/3/uL (0.0-0.11); LYMPHOCYTES 15.8 %; LYMPHOCYTES ABSOLUTE 1.43 10/3/uL (0.67-4.30); MEAN CORPUS HGB CONC 32.8 g/dL (32.0-36.0); MEAN CORPUSCULAR HEMOGLOB 30.1 pg (26.0-34.0); MEAN PLATELET VOLUME 8.4 fL (9.2-13.0); MONOCYTES 6.2 %; MONOCYTES ABSOLUTE 0.56 10/3/uL (0.21-1.20); NEUTROPHILS 74.5 %; NEUTROPHILS ABSOLUTE 6.73 10/3/uL (2.02-8.40); PLATELET COUNT 255 10/3/uL (150-400); RBC DISTRIBUTION WIDTH 14.4 % (12.0-16.0); RED CELL COUNT 4.42 10/6/uL (4.0-5.6)
[2017-02-12 05:24] LABS: MANUAL DIFF NO %; MEAN CORPUSCULAR VOLUME 91.6 fL (80-100)
[2017-02-12 05:32] LABS: ALBUMIN 2.3 G/DL (3.5-5.0); BUN (BLOOD UREA NITROGEN) 13 MG/DL (6-23); CALCIUM, SERUM 7.9 MG/DL (8.5-10.4); CHLORIDE, SERUM 104 MMOL/L (96-112); CO2 (CARBON DIOXIDE) 27 MMOL/L (24-34); CREATININE 2.32 MG/DL (0.55-1.02); GFR AFRICAN AMERICAN 25 ML/MIN (>=60); GFR NON AFRICAN AMERICAN 22 ML/MIN (>=60); GLUCOSE, SERUM 122 MG/DL (60-99); PHOSPHORUS, SERUM 2.7 MG/DL (2.5-4.5); POTASSIUM, SERUM 3.5 MMOL/L (3.5-5.3); SODIUM, SERUM 141 MMOL/L (135-148)
[2017-02-12 11:32] LABS: A/G 0.79 RATIO (0.9-2.10); ALB RELATIVE % 44.1 % (60.0-89.0); ALBUMIN (ELECTRO) 2.73 GM/DL (3.2-5.5); ALPHA 1 (ELECTRO) 0.32 GM/DL (0.1-0.4); ALPHA 1 RELAT % (NOT ORD) 5.2 % (1.0-4.0); ALPHA 2 (ELECTRO) 1.06 GM/DL (0.5-1.10); ALPHA 2 RELAT % 17.1 % (4.5-26.0); BETA GLOBULIN (SPE) 0.67 GM/DL (0.60-1.30); BETA RELATIVE % 10.8 % (9.0-22.0); GAMMA GLOBULIN (SPE) 1.41 G/DL (0.70-1.60); GAMMA RELAT % 22.8 % (6.0-22.0)
[2017-02-13 05:55] LABS: ALBUMIN 2.3 G/DL (3.5-5.0); BUN (BLOOD UREA NITROGEN) 15 MG/DL (6-23); CALCIUM, SERUM 7.9 MG/DL (8.5-10.4); CHLORIDE, SERUM 105 MMOL/L (96-112); CO2 (CARBON DIOXIDE) 28 MMOL/L (24-34); CREATININE 2.18 MG/DL (0.55-1.02); GFR AFRICAN AMERICAN 27 ML/MIN (>=60); GFR NON AFRICAN AMERICAN 24 ML/MIN (>=60); GLUCOSE, SERUM 109 MG/DL (60-99); POTASSIUM, SERUM 3.2 MMOL/L (3.5-5.3); SODIUM, SERUM 142 MMOL/L (135-148)
[2017-02-13] MEDS ORDERED: LIPITOR40 PO (12:25)
[2017-02-13] MEDS ORDERED: PROTONIX PO (12:25)
[2017-02-13] MEDS ORDERED: LOP25 PO (12:25)
[2017-02-13] MEDS ORDERED: KDUR20 PO (12:26)
== END 2017-02-13 13:32 | disposition home or self-care (01) | DRG 438 ==
LOC: ER 20:37 → 5NO 02-07 01:44
PROVIDERS: Emergency Medicine; Hospitalist; Internal Medicine; Internal Medicine Nephrology; Nurse Practitioner; Nurse Practitioner Family; Physician Assistant
PROC: 4A023N7 Measurement of Cardiac Sampling and Pressure, Left Heart, Percutaneous Approach (ICD-10-PCS; principal; 2017-02-08)
PROC: B2111ZZ Fluoroscopy of Multiple Coronary Arteries using Low Osmolar Contrast (ICD-10-PCS; 2017-02-08)
PROC: 0DB98ZX Excision of Duodenum, Via Natural or Artificial Opening Endoscopic, Diagnostic (ICD-10-PCS; 2017-02-10)
PROC: 0DB68ZX Excision of Stomach, Via Natural or Artificial Opening Endoscopic, Diagnostic (ICD-10-PCS; 2017-02-10)
DX: K85.90 Acute pancreatitis without necrosis or infection, unspecified (principal); I21.4 Non-ST elevation (NSTEMI) myocardial infarction; N17.9 Acute kidney failure, unspecified; N18.3 Chronic kidney disease, stage 3 (moderate); E87.1 Hypo-osmolality and hyponatremia; Z68.41 Body mass index [BMI] 40.0-44.9, adult; E86.0 Dehydration; E66.01 Morbid (severe) obesity due to excess calories; F41.9 Anxiety disorder, unspecified; F32.9 Major depressive disorder, single episode, unspecified; G47.33 Obstructive sleep apnea (adult) (pediatric); Z90.49 Acquired absence of other specified parts of digestive tract; Z90.710 Acquired absence of both cervix and uterus; Z88.1 Allergy status to other antibiotic agents; Z79.899 Other long term (current) drug therapy; Z79.82 Long term (current) use of aspirin; F17.210 Nicotine dependence, cigarettes, uncomplicated; Z82.3 Family history of stroke; Z82.49 Family history of ischemic heart disease and other diseases of the circulatory system; K29.70 Gastritis, unspecified, without bleeding; K44.9 Diaphragmatic hernia without obstruction or gangrene; I12.9 Hypertensive chronic kidney disease with stage 1 through stage 4 chronic kidney disease, or unspecified chronic kidney disease
CPT/HCPCS: 71010; 74176; 80048; 80053; 80061; 80069; 81001; 82150; 82330; 82550; 82553; 82570; 82787; 82787-59; 83036; 83605; 83690; 83735; 83935; 84145; 84155; 84156; 84165; 84300; 84439; 84443; 84484; 84703; 85025; 85610; 85730; 86301; 87040; 87077; 87086; 87186; 88305; 88342; 93005; 93306; 93458; 96365; 96375; 99291; A9270-GY; C1760; C1769; C1894; C9113; J1170; J1956; J2250; J2405; J3010; Q9967